=== PATIENT | male | born 1990 | race Caucasian/White ===

== ENCOUNTER 2018-11-27 14:42 | Emergency (ER) | payer MEDICAID ==
[~2018-11-27] VITALS: Ht 172.7 cm; Wt 75.0 kg
[2018-11-27 14:44] VITALS: BP 140/86
== END 2018-11-27 15:30 | disposition left against medical advice (07) ==
LOC: ER 14:42
DX: Z53.21 Procedure and treatment not carried out due to patient leaving prior to being seen by health care provider (principal)

== ENCOUNTER 2019-10-14 21:05 | Emergency (ER) | payer MEDICAID ==
[~2019-10-14] VITALS: Ht 175.3 cm; Wt 105.0 kg
[2019-10-14] MEDS ORDERED: KETOROLAC 60MG/2ML VIAL IM ONE (23:15)
[2019-10-15] MEDS ORDERED: AZITHROMYCIN 500 MG TABLET PO ONE (02:45)
[2019-10-15 03:28] VITALS: BP 152/93
== END 2019-10-15 03:35 | disposition home or self-care (01) ==
LOC: ER 23:12
DX: J18.9 Pneumonia, unspecified organism (principal); F17.200 Nicotine dependence, unspecified, uncomplicated
CPT/HCPCS: 71045; 71250; 93005; 96372; 99284; J1885; Z7610

== ENCOUNTER 2020-05-12 09:13 | Emergency (ER) | payer MEDICAID ==
[~2020-05-12] VITALS: Ht 172.7 cm; Wt 75.0 kg
[2020-05-12] MEDS ORDERED: IBUPROFEN 600MG TABLET PO ONE (10:15)
[2020-05-12 11:41] VITALS: BP 148/84
== END 2020-05-12 11:46 | disposition home or self-care (01) ==
LOC: ER 09:13
DX: S63.501A Unspecified sprain of right wrist, initial encounter (principal); X50.0XXA Overexertion from strenuous movement or load, initial encounter; Y93.89 Activity, other specified; Y92.89 Other specified places as the place of occurrence of the external cause
CPT/HCPCS: 29125; 73110; 99283

== ENCOUNTER 2020-05-16 08:15 | Emergency (ER) | payer MEDICAID ==
[~2020-05-16] VITALS: Ht 177.8 cm; Wt 113.0 kg
[2020-05-16] MEDS ORDERED: IBUPROFEN 600MG TABLET PO ONE (08:45)
[2020-05-16 09:13] VITALS: BP 131/84
== END 2020-05-16 09:40 | disposition home or self-care (01) ==
LOC: ER 08:15
DX: M25.531 Pain in right wrist (principal)
CPT/HCPCS: 29125; 99283

== ENCOUNTER 2020-11-23 20:10 | Emergency (ER) | payer MEDICAID ==
[~2020-11-23] VITALS: Ht 170.2 cm; Wt 95.0 kg
[2020-11-23] MEDS ORDERED: TETANUS, DIPHTHERIA, PERTUSSIS VAC/PF 0.5ML (>7YR OLD) IM ONE (22:00)
[2020-11-23] MEDS ORDERED: LIDOCAINE HCL/PF 1% 10 MG/ML 5ML VIAL IJ STA (22:46)
[2020-11-23] MEDS ORDERED: BACITRACIN ZINC OINT UDPKT TOP ONE (23:00)
[2020-11-23] MEDS ORDERED: IBUPROFEN 600MG TABLET PO ONE (23:00)
[2020-11-23] MEDS ORDERED: ONDANSETRON 4MG ODT PO ONE (23:15)
[2020-11-23 23:31] VITALS: BP 145/90
== END 2020-11-24 00:05 | disposition home or self-care (01) ==
LOC: ER 20:10
DX: S61.412A Laceration without foreign body of left hand, initial encounter (principal); W26.0XXA Contact with knife, initial encounter; Y93.89 Activity, other specified; Y92.9 Unspecified place or not applicable; Z88.0 Allergy status to penicillin
CPT/HCPCS: 90471; 90715; 99284; J3490; Q0162; Z7610

== ENCOUNTER 2020-12-10 22:34 | Emergency (ER) | payer MEDICAID ==
[~2020-12-10] VITALS: Ht 180.3 cm; Wt 105.0 kg
[2020-12-10 22:40] VITALS: BP 170/103
== END 2020-12-10 23:12 | disposition home or self-care (01) ==
LOC: ER 22:34
DX: Z48.02 Encounter for removal of sutures (principal)
CPT/HCPCS: 99281

== ENCOUNTER 2022-02-12 18:36 | Emergency (ER) | payer MEDICAID ==
[~2022-02-12] VITALS: Ht 180.3 cm; Wt 116.0 kg
[2022-02-12 18:38] VITALS: BP 145/95
[2022-02-12] MEDS ORDERED: IBUPROFEN 600MG TABLET PO ONE (19:00)
[2022-02-12] MEDS ORDERED: IBUP-2029 MT (19:14)
[2022-02-12] MEDS ORDERED: CYCL10TA7 MT (19:14)
== END 2022-02-12 19:15 | disposition home or self-care (01) ==
LOC: ER 18:36
DX: M54.9 Dorsalgia, unspecified (principal); Z88.0 Allergy status to penicillin
CPT/HCPCS: 99282

== ENCOUNTER 2023-05-06 14:01 | Emergency (ER) | payer MEDICAID ==
[~2023-05-06] VITALS: Ht 177.8 cm; Wt 109.1 kg
[~2023-05-06 14:01] MED LIST: CYCL10TA21 MT; IBUP-2029 MT
[2023-05-06 14:06] VITALS: O2SAT 100
[2023-05-06] MEDS ORDERED: ACETAMINOPHEN 325MG TABLET PO ONE (16:30)
[2023-05-06] MEDS ORDERED: BACITRACIN ZINC OINT UDPKT TOP ONE (16:30)
[2023-05-06] MEDS ORDERED: SULF1TAB48 MT (17:52)
[2023-05-06 18:30] VITALS: BP 131/80; PULSE 81; RESP 19; TEMP 97.9
== END 2023-05-06 18:33 | disposition home or self-care (01) ==
LOC: ER 14:01
DX: L02.416 Cutaneous abscess of left lower limb (principal); F12.10 Cannabis abuse, uncomplicated; Z88.0 Allergy status to penicillin
CPT/HCPCS: 10060; 99283; Z7610 ×2

== ENCOUNTER 2024-05-29 21:46 | Emergency (ER) | payer MEDICAID ==
[~2024-05-29] VITALS: Ht 177.8 cm; Wt 114.0 kg
[~2024-05-29 21:46] MED LIST changes: -CYCL10TA21 MT; -IBUP-2029 MT; +LEVO-65 MT; +METR-167 MT
[2024-05-29 22:11] VITALS: O2SAT 100
[2024-05-29 22:36] LABS: BASOPHILS % 0.9 % (0.0-2.0); EOSINOPHILS % 1.1 % (0.0-5.0); HEMATOCRIT. 45.5 % (42.0-52.0); HEMOGLOBIN. 15.8 g/dL (14.0-18.0); LYMPHOCYTES % 18.4 % (20.0-50.0); MEAN CORPUSCULAR HGB CONC 34.8 g/dL (31.0-37.0); MEAN CORPUSCULAR VOLUME 92.2 fL (80.0-94.0); MEAN PLATELET VOLUME 8.1 fl (7.4-10.4); MONOCYTES % 5.9 % (2.0-8.0); NEUTROPHILS % 73.7 % (40.0-76.0); PLATELET 245 x1000/uL (130-400); RED BLOOD CELL COUNT 4.93 mill/uL (4.7-6.1); RED CELL DISTRIBUTION WIDTH 13.3 % (11.6-14.6); WHITE BLOOD COUNT 13.4 x1000/uL (4.5-11.0)
[2024-05-29 22:45] LABS: CHLORIDE 102 mEq/L (98-107); POTASSIUM 3.7 mEq/L (3.5-5.1); SODIUM 139 mEq/L (136-145)
[2024-05-29 22:46] LABS: CARBON DIOXIDE 29 mEq/L (21-32)
[2024-05-29 22:47] LABS: CALCIUM 9.6 mg/dL (8.7-10.4)
[2024-05-29 22:52] LABS: CREATININE 0.8 mg/dL (0.6-1.3); GLUCOSE 114 mg/dL (70-105); UREA NITROGEN BLOOD 9 mg/dL (9-23)
[2024-05-30 01:01] LABS: CLARITY URINE CLEAR (CLEAR); COLOR URINE YELLOW (YELLOW); GLUCOSE URINE NEGATIVE (NEGATIVE); KETONES URINE NEGATIVE (NEGATIVE); LEUKOCYTE ESTERASE URINE NEGATIVE (NEGATIVE); NITRITE URINE NEGATIVE (NEGATIVE); OCCULT BLOOD URINE NEGATIVE (NEGATIVE); PROTEIN URINE NEGATIVE (NEGATIVE); SPECIFIC GRAVITY URINE 1.018 (1.005-1.030)
[2024-05-30] MEDS: MORPHINE SULFATE 4 MG/ML INJ (FOR IV/IM USE) IV STA (01:12)
[2024-05-30] MEDS: SODIUM CHLORIDE 0.9% 1,000 ML IV ONE (01:12)
[2024-05-30] MEDS ORDERED: AMOX1TAB16 MT (02:53)
[2024-05-30] MEDS ORDERED: HYDR-4001 MT (02:56)
[2024-05-30 04:21] VITALS: BP 132/89; PULSE 98; RESP 16; TEMP 98.6
[2024-05-30] MEDS ORDERED: IOHEXOL-300 100 ML BOTTLE ONE (06:42)
== END 2024-05-30 04:23 | disposition home or self-care (01) ==
LOC: ER 21:46
DX: K57.92 Diverticulitis of intestine, part unspecified, without perforation or abscess without bleeding (principal); F12.10 Cannabis abuse, uncomplicated; Z88.0 Allergy status to penicillin
CPT/HCPCS: 99285; 80048; 85025; 36415; 74177; 96374; 81003; Q9967; J2270; J7030